=== PATIENT | female | born 1995 | race American Indian/Alaskan Native ===

== ENCOUNTER 2024-12-14 10:35 | Emergency (ER) | payer MEDICAID, SELFPAY ==
[2024-12-14 10:36] VITALS: BMI 37.8
[2024-12-14 10:45] VITALS: BP 133/91; PULSE 91; RESP 20; TEMP 36.9; O2SAT 95
--- NOTE | 2024-12-14 10:58 | XR_ITS ---
EXAMINATION: XR chest 2V ORDERING PROVIDER: DOMINIC Molina HISTORY: Chest Pain TECHNIQUE: PA and Lateral radiographs of the chest. COMPARISON: 07/09/2024, chest radiographs FINDINGS: Lungs: Clear. Pleura: No pneumothorax or pleural effusion. Cardiomediastinal Silhouette: Normal. Soft Tissues/Bones: Hair artifact projects over the neck and upper chest. IMPRESSION: No acute pulmonary findings.
--- NOTE | 2024-12-14 10:58 | EKG_ITS ---
[facility] Test Date: 2024-12-14 Pat Name: NIKHIL RAHMAN Department: Room: - Gender: Female Pharmacy Consultant: : 1995 Requested By: Martín Ritter Order Number: [id number] Reading MD: Martín Ritter Measurements Intervals [place] Rate: 67 P: 52 OR: 137 QRS: 73 QRSD: 97 T: 41 QT: 380 QTc: 403 Interpretive Statements SINUS RHYTHM WITH OCCASIONAL SUPRAVENTRICULAR PREMATURE COMPLEXES Compared to ECG 07/09/2024 15:31:35 Sinus tachycardia no longer present Right-axis deviation no longer present /store/S0/[id number].pdf
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
[2024-12-14 11:13] LABS: Collection Type, Urine Clean Catch
[2024-12-14 11:25] LABS: HCG Qualitative,Urine Negative
[2024-12-14 11:40] LABS: Amphetamine/Methamp Scrn,U Positive (Negative); Barbiturate Screen,Urine Negative (Negative); Benzodiazepines Screen,Urine Negative (Negative); Benzoylecgonine Screen, Ur Negative (Negative); Fentanyl Screen,Urine Negative (Negative); Opiate Screen,Urine Negative (Negative); THC Screen,Urine Positive (Negative)
[2024-12-14 11:45] LABS: Basophils % (Auto) 0 % (0-2.5); Eosinophils # (Auto) 0.2 Thou/mm3 (0.0-0.5); Eosinophils % (Auto) 2 % (0-10); Hematocrit 40.6 % (36.0-46.0); Hemoglobin 13.8 g/dL (12.0-16.0); Immature Granulocytes % (Auto) 0 % (0-0); Immature Granulocytes Auto 0.04 Thou/mm3 (0.00-0.00); Lymphocytes # (Auto) 2.1 Thou/mm3 (1.0-4.8); Lymphocytes % (Auto) 22 % (10-50); Mean Corpuscular Hemoglobin 29.9 pg (25.0-35.0); Mean Corpuscular Volume 88 fL (80-100); Monocytes # (Auto) 0.7 Thou/mm3 (0.0-0.8); Monocytes % (Auto) 7 % (0-12); Neutrophils # (Auto) 6.5 Thou/mm3 (1.8-7.7); Neutrophils % (Auto) 69 % (37-80); Nucleated Red Blood Cell % 0 /100 WBC (0); Platelet Count 401 Thou/mm3 (140-440); RDW Standard Deviation 43.8 fL (36.4-46.3); Red Blood Count 4.62 Miln/mm3 (4.00-5.20); White Blood Count 9.5 Thou/mm3 (3.6-11.0)
[2024-12-14 11:46] LABS: Bacteria,Urine 4+; Bilirubin,Urine Negative (Negative); Blood,Urine 2+ (Negative); Clarity,Urine Turbid (Clear/Hazy); Color,Urine Yellow (Lt Yel-Yel); Culture Indicated,Urine Contaminated; Glucose, Urine Negative (Negative); Ketones,Urine 3+ (Negative); Leukocyte Esterase,Urine Positive (Negative); Nitrite,Urine Positive (Negative); Protein,Urine 1+ (Neg - Trace); RBC,Urine 20 /hpf (0-3); Specific Gravity,Urine 1.035 (1.001-1.035); Squamous Epithelial Cell,Urine 41 /hpf (0-5); WBC,Urine 30 /hpf (0-5)
[2024-12-14 12:02] LABS: Anion Gap 7 (7-16); BUN/Creatinine Ratio 15 Ratio (12-20); Blood Urea Nitrogen 12 mg/dL (9-23); Carbon Dioxide 30.2 mMol/L (20.0-31.0); Chloride 100 mMol/L (98-107); Creatinine (Component) 0.8 mg/dL (0.6-1.3); Estimated Creatinine Clearance 107.4 mL/min (>60); Glucose 111 mg/dL (74-106); Potassium 3.3 mMol/L (3.4-5.1); Sodium 137 mMol/L (136-145); eGFR > 60 See Note
[2024-12-14 12:03] LABS: Alanine Aminotransferase 115 U/L (10-49); Albumin, Serum 4.9 gm/dL (3.5-5.0); Albumin/Globulin Ratio 1.6 (1.2-2.2); Alkaline Phosphatase 123 U/L (46-116); Aspartate Amino Transferase 91 U/L (0-34); Bilirubin,Total 0.6 mg/dL (0.3-1.2); Calcium 9.9 mg/dL (8.3-10.6); Calcium (Corrected) 9.9 mg/dL (8.5-10.1); Globulin 3.1 gm/dL (2.3-3.5); Magnesium 2.2 mg/dL (1.6-2.6); Osmolality,Calculated 274 (275-295); Troponin I < 0.002 ng/mL (0.0-0.045)
[2024-12-14 12:13] LABS: B-Type Natriuretic Peptide < 20 pg/mL (0-100)
--- NOTE | 2024-12-14 17:57 | PC.NURSE ---
called from lobby at 1525, 1555, and 1630 and no answer. still no answer at this time
== END 2024-12-14 17:58 | disposition left against medical advice (07) ==
PROVIDERS: Nurse Practitioner Family; Emergency Provider Emergency Medicine; PCP Physician Assistant
DX: R07.9 Chest pain, unspecified (principal); R00.2 Palpitations; Z53.29 Procedure and treatment not carried out because of patient's decision for other reasons
CPT/HCPCS: 36415; 71046; 80053; 80307; 81001; 81025; 83735; 83880; 84484; 85025; 87491; 87591; 87661; 93005; 99281

== ENCOUNTER 2025-01-28 15:33 | Emergency (ER) | payer MEDICAID, SELFPAY ==
[2025-01-28 15:33] VITALS: BMI 34.9
[2025-01-28 15:59] VITALS: BP 131/91; PULSE 96; RESP 18; TEMP 37.1; O2SAT 99
--- NOTE | 2025-01-28 16:04 | EKG_ITS ---
[facility] Test Date: 2025-01-28 Pat Name: NIKHIL RAHMAN Department: Room: - Gender: Female Automatic Transmission Mechanic: : 1995 Requested By: Martín Ritter Order Number: [id number] Reading MD: Martín Ritter Measurements Intervals [place] Rate: 83 P: 54 IA: 141 QRS: 85 QRSD: 90 T: 39 QT: 347 QTc: 409 Interpretive Statements SINUS RHYTHM WITH MARKED SINUS ARRHYTHMIA Compared to ECG 12/14/2024 10:59:21 No significant changes /store/S0/[id number]/[id number].pdf
--- NOTE | 2025-01-28 16:05 | PD.EDRME ---
Rapid Medical Screening Exam [facility] Arrival date/time: 01/28/25 15:33 29-year-old female with no known medical history presents to the emergency room with a chief complaint of dizziness, palpitations, right-sided neck pain x 2 days I have greeted and performed a focused initial assessment of this patient. A comprehensive ED assessment and evaluation of the patient, analysis of all test results, and completion of the medical decision making process will be conducted by additional ED providers. Chief Complaint: Dizziness Vital signs: Vital Signs Temperature 98.8 F 01/28/25 15:59 Pulse Rate 96 01/28/25 15:59 Respiratory Rate 18 01/28/25 15:59 Blood Pressure 131/91 H 01/28/25 15:59 Pulse Oximetry (%) 99 01/28/25 15:59 Oxygen Delivery Method Room Air 01/28/25 15:59 Vital signs reviewed by provider: Yes
[2025-01-28 16:56] LABS: Basophils % (Auto) 0 % (0-2.5); Eosinophils # (Auto) 0.2 Thou/mm3 (0.0-0.5); Eosinophils % (Auto) 1 % (0-10); Hematocrit 44.7 % (36.0-46.0); Hemoglobin 15.2 g/dL (12.0-16.0); Immature Granulocytes % (Auto) 0 % (0-0); Immature Granulocytes Auto 0.03 Thou/mm3 (0.00-0.00); Lymphocytes # (Auto) 2.1 Thou/mm3 (1.0-4.8); Lymphocytes % (Auto) 18 % (10-50); Mean Corpuscular Hemoglobin 30.6 pg (25.0-35.0); Mean Corpuscular Volume 90 fL (80-100); Monocytes # (Auto) 0.8 Thou/mm3 (0.0-0.8); Monocytes % (Auto) 6 % (0-12); Neutrophils # (Auto) 8.5 Thou/mm3 (1.8-7.7); Neutrophils % (Auto) 73 % (37-80); Nucleated Red Blood Cell % 0 /100 WBC (0); Platelet Count 338 Thou/mm3 (140-440); RDW Standard Deviation 45.2 fL (36.4-46.3); Red Blood Count 4.97 Miln/mm3 (4.00-5.20); White Blood Count 11.6 Thou/mm3 (3.6-11.0)
[2025-01-28 17:11] LABS: B-Type Natriuretic Peptide < 20 pg/mL (0-100)
[2025-01-28 17:14] LABS: Alanine Aminotransferase 104 U/L (10-49); Albumin/Globulin Ratio 1.6 (1.2-2.2); Alkaline Phosphatase 146 U/L (46-116); Anion Gap 7 (7-16); Aspartate Amino Transferase 73 U/L (0-34); BUN/Creatinine Ratio 11 Ratio (12-20); Bilirubin,Total 0.8 mg/dL (0.3-1.2); Blood Urea Nitrogen 9 mg/dL (9-23); Chloride 108 mMol/L (98-107); Creatinine (Component) 0.8 mg/dL (0.6-1.3); Estimated Creatinine Clearance 102.9 mL/min (>60); Globulin 3.2 gm/dL (2.3-3.5); Glucose 104 mg/dL (74-106); Osmolality,Calculated 274 (275-295); Potassium 3.7 mMol/L (3.4-5.1); Sodium 138 mMol/L (136-145); Total Protein 8.2 gm/dL (5.7-8.2); Troponin I < 0.002 ng/mL (0.0-0.045); eGFR > 60 See Note
[2025-01-28 17:54] LABS: Collection Type, Urine Clean Catch
[2025-01-28 18:19] LABS: Amphetamine/Methamp Scrn,U Negative (Negative); Barbiturate Screen,Urine Negative (Negative); Benzodiazepines Screen,Urine Negative (Negative); Benzoylecgonine Screen, Ur Negative (Negative); Bilirubin,Urine Negative (Negative); Blood,Urine 3+ (Negative); Clarity,Urine Turbid (Clear/Hazy); Color,Urine Yellow (Lt Yel-Yel); Fentanyl Screen,Urine Negative (Negative); Glucose, Urine Negative (Negative); Ketones,Urine 2+ (Negative); Leukocyte Esterase,Urine Positive (Negative); Nitrite,Urine Negative (Negative); Opiate Screen,Urine Negative (Negative); Protein,Urine 1+ (Neg - Trace); RBC,Urine 5 /hpf (0-3); Specific Gravity,Urine 1.033 (1.001-1.035); Squamous Epithelial Cell,Urine 52 /hpf (0-5); THC Screen,Urine Positive (Negative); Urobilinogen,Urine Negative mg/dL (0.0-1.0); WBC,Urine 3 /hpf (0-5)
== END 2025-01-28 20:31 | disposition left against medical advice (07) ==
LOC: SERX 17:01
PROVIDERS: Nurse Practitioner Family; Emergency Provider Emergency Medicine
DX: M54.2 Cervicalgia (principal); R42 Dizziness and giddiness; R00.2 Palpitations; Z53.29 Procedure and treatment not carried out because of patient's decision for other reasons
CPT/HCPCS: 36415; 80053; 80307; 81001; 83880; 84484; 85025; 87086; 93005; 99281

== ENCOUNTER 2025-05-09 17:38 | Emergency (ER) | payer MEDICAID, SELFPAY ==
[2025-05-09 17:40] VITALS: BP 146/84; PULSE 102; RESP 18; TEMP 36.9; O2SAT 98
[2025-05-09 17:41] VITALS: PULSE 123; RESP 18; O2SAT 98; BMI 34.0
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
[2025-05-09 18:29] LABS: Collection Type, Urine Clean Catch
[2025-05-09 18:42] LABS: Bilirubin,Urine Negative (Negative); Blood,Urine Negative (Negative); Clarity,Urine Clear (Clear/Hazy); Color,Urine Lt-Yellow (Lt Yel-Yel); Glucose, Urine Negative (Negative); HCG Qualitative,Urine Negative; Hyaline Casts,Urine < 1 /hpf (0-1); Ketones,Urine Trace (Negative); Leukocyte Esterase,Urine Negative (Negative); Nitrite,Urine Negative (Negative); PH,Urine 6.0 (5.0-7.0); Protein,Urine Negative (Neg - Trace); RBC,Urine 2 /hpf (0-3); Specific Gravity,Urine 1.023 (1.001-1.035); Squamous Epithelial Cell,Urine 4 /hpf (0-5); Urobilinogen,Urine Negative mg/dL (0.0-1.0); WBC,Urine 2 /hpf (0-5)
--- NOTE | 2025-05-09 18:42 | PC.CC ---
Per Dr. Dickerson, patient will not require a mental health evaluation as patient is only requesting RX for psych medication and wants to go home. Patient denied SI/HI/VH/AH to Dr. Dickerson.
--- NOTE | 2025-05-09 18:43 | PD.EDANX ---
ED Anxiety RME/HPI General Chief Complaint: Anxiety Stated Complaint: BEHAVIORAL Arrival date/time: 05/09/25 17:38 RME / HPI RME / HPI narrative: This section includes all my notes and documentations, including HPI, PE, and ED course. Betito Dickerson MD HPI: 29yo female with a history of schizophrenia, bipolar disorder BIBA here with possible anxiety. Patient was discharged from [facility] yesterday. And was told to get out of the house today by family. She lives with her grandmother and uncle and sister. Grandmother's $1800 hdez is missing. They are believing her. No thoughts of hurting yourself or others. No hallucinations. Declines transfer to psychiatric facility. Requests a dose of Zyprexa and prescription. Because her medications are at the house. No other complaints. ROS: All negative except as documented in HPI. Physical Exam: General: Alert and oriented. Eyes: Conjunctivae and lids clear. ENT: No nasal congestion. Neck: Supple. Heart: RRR. Lungs: No respiratory distress. Good air movement. No rhonchi, wheezing, rales. Abdomen: Soft and nontender. Skin: Warm and dry. Neuro: Alert and oriented X 3. Cranial nerves II to XII grossly normal. No peripheral motor deficits. I reviewed EMS notes. I reviewed all diagnostic test results. HCG negative. UDS negative. At this point, diagnoses include: encounter for medication refill. Treatment here included: Zyprexa. Patient does not meet the criteria for emergent custodial. Recommended more outpatient workup. Based on my best medical judgment, made decision no further evaluation or treatment indicated at this time. Patient understands and agrees to the discharge instructions customized and printed, see below. Discharge Instructions from Dr. Dickerson: 1. As you requested, you are being discharged with medication refill. 2. You don't meet the criteria for emergency custodial in psychiatric unit against your will. Because you have no thoughts of hurting yourself or others. And there are no signs of psychosis (loss of touch with reality) which can potentially be harmful to you and others. 3. See a private doctor on 05/31 for recheck and further care. Ask to help you stay healthy both physically and mentally. And help to receive all services available to you, including referral to see mental health specialists. 4. Seek immediate medical care (you can call 911 any time) with thoughts of hurting yourself or with any concerns. Betito Dickerson MD Related Data Previous Rx's ?Medication ?Instructions ?Recorded olanzapine 10 mg tablet 10 mg PO QPM #30 tabs 05/09/25 Allergies Allergy/AdvReac Type Severity Reaction Status Date / Time apple Allergy Severe Rash Verified 01/28/25 15:36 lopez Allergy Severe Rash Verified 01/28/25 15:36 orange Allergy Severe Rash Verified 01/28/25 15:36 Review of Systems Review of Systems Systems Reviewed: All systems reviewed, normal except as documented Past Medical History Past Medical History NEUROLOGIC: Negative Neurological Disorders or Seizures CARDIAC: Negative Cardiac Disorders or Congestive Heart Failure RESPIRATORY: Negative Chronic Obstructive Pulmonary Disease (COPD) GASTROINTESTINAL: Negative Gastrointestinal Disorders or Hepatitis GENITOURINARY: Positive Genitourinary Disorders and Kidney Stones; Negative Renal Disease REPRODUCTIVE: Positive Previous Pregnancies MUSCULOSKELETAL: Negative Musculoskeletal Disorders ENDOCRINE: Negative Endocrine Disorders, Diabetes Mellitus Type 1 or Diabetes Mellitus Type 2 HEMATOLOGIC: Negative Blood Disorders PSYCHO/SOCIAL: Positive Depression and Anxiety OTHER HISTORY: Positive Hospitalization; Negative Autoimmune Disease, Blood Transfusions, Blood Transfusion Reaction, Anesthesia Reactions, Human Immunodeficiency Virus (HIV), Chicken Pox, Measles, Mumps, Rubella (Mont[place]grin Measles), Pertussis or Clostridium Difficile Family History FAMILY HISTORY: Positive Family Surgery; Negative Family Psychiatric Problems, Family Respiratory Disorders, Family Cardiac Disorders, Family Gastrointestinal Problems, Family Cancer or Family Anesthesia Reaction Surgical History SURGICAL: Positive Section; Negative Cardiac Surgery, Endocrine Surgery, Ear Surgery or Abdominal Surgery Social History SMOKING STATUS: Former smoker SECOND HAND EXPOSURE: Yes ED Exam Narrative Physical exam: As noted in HPI. Course Quality Measures none Orders Category Date Time Status Drug Screen,Urine Stat Lab 05/09/25 18:18 Received HCG Qualitative,Urine Stat Lab 05/09/25 18:18 Results UA [Urinalysis] Stat Lab 05/09/25 18:18 Results Vital Signs Vital signs: Vital Signs Temperature 98.5 F 05/09/25 17:40 Pulse Rate 102 H 05/09/25 17:40 Respiratory Rate 18 05/09/25 17:40 Blood Pressure 146/84 H 05/09/25 17:40 Pulse Oximetry (%) 98 05/09/25 17:40 Oxygen Delivery Method Room Air 05/09/25 17:40 Anxiety MDM Narrative MDM Narrative: 29yo female with a history of schizophrenia, bipolar disorder BIBA here with anxiety. Patient was discharged from [facility] yesterday and was told to get out of the house today. Patient is here requesting a new prescription for her psychiatric medications including Zyprexa. No SI, HI, or hallucinations. No other complaints reported. Patient data External records reviewed:: [facility] previous records (Per chart review, patient was seen here on 07/09/24 for psychosis.) and EMS form Clinical information provided by:: patient Social determinants that could affect healthcare access:: mental health Patient has the following chronic illnesses:: schizophrenia, bipolar disorder How is presenting disease/condition affected by chronic disease/condition?: caused by Evaluation data The following diagnostics were reviewed and interpreted by me:: lab results Lab and/or radiology exams considered but not ordered:: none Interpretation Summary: I reviewed all diagnostic test results. HCG negative. UDS negative. Medications / Prescriptions Medications or Prescriptions considered but not ordered:: none Medication administrations:: Zyprexa Consultations Consultation(s) initiated? (list below): No Diagnosis Differential diagnosis anxiety: hyperventilation, panic disorder, acute anxiety and other (SI, HI, psychosis, jaydon) Most likely diagnosis given after review of the tests above:: Encounter for medication refill Admission Indicated Admission indicated?: not indicated Explain why admission is indicated or not indicated:: With no condition needing emergent intervention, there was no indication for admission. Admission Request Was there a request for admission?: No Disposition Plan Disposition Plan: Discharge Discharge Attestation Discharge Attestation: The patient and all family members were given an opportunity to ask questions and understood the discharge instructions. Discharge instructions specifically effects, indications for sooner follow up or return to the emergency department, and the expected course of current diagnosis. Patient condition: Stable Discharge Plan Plan Patient Disposition: Home w/HOME HEALTH Prescriptions/Referrals Prescriptions/Med Rec: New olanzapine 10 mg tablet 10 mg PO QPM Qty: 30 0RF Referrals: No Primary/Family,Physician [Referring Provider] - In 1 week Problem List Clinical Impression: Encounter for medication refill Patient/Caregiver Discharge Instructions Discharge Activity: activity as tolerated Education Materials: ED Bipolar Disorder, ED Psychosis, ED Schizophrenia, General Additional Instructions: Discharge Instructions from Dr. Dickerson: 1. As you requested, you are being discharged with medication refill. 2. You don't meet the criteria for emergency custodial in psychiatric unit against your will.? Because you have no thoughts of hurting yourself or others.? And there are no signs of psychosis (loss of touch with reality) which can potentially be harmful to you and others. 3. See a private doctor on 05/31 for recheck and further care. Ask to help you stay healthy both physically and mentally.? And help to receive all services available to you, including referral to see mental health specialists. 4. Seek immediate medical care (you can call 911 any time) with thoughts of hurting yourself or with any concerns. Print Language: Romanian Stand Alone Forms: Michelle Award Info., Patient Portal Info Letter
[2025-05-09 18:49] LABS: Amphetamine/Methamp Scrn,U Negative (Negative); Barbiturate Screen,Urine Negative (Negative); Benzodiazepines Screen,Urine Negative (Negative); Benzoylecgonine Screen, Ur Negative (Negative); Fentanyl Screen,Urine Negative (Negative); Opiate Screen,Urine Negative (Negative); THC Screen,Urine Negative (Negative)
[2025-05-09 19:10] VITALS: BP 144/97; PULSE 85; RESP 14; TEMP 37; O2SAT 99
== END 2025-05-09 19:15 | disposition home or self-care (01) ==
PROVIDERS: Emergency Provider Emergency Medicine; PCP Nurse Practitioner Family
DX: Z76.0 Encounter for issue of repeat prescription (principal); F20.9 Schizophrenia, unspecified
CPT/HCPCS: 80307; 81001; 81025; 96127; 99283; A9270